=== PATIENT | female | born 1965 | race Caucasian/White ===

== ENCOUNTER 2017-06-28 06:45 | Day surgery (SDC) | payer OTHER ==
[~2017-06-28 06:45] MED LIST: Lactated Ringers 1,000 ML IV SCH; Sodium Chloride 0.9% 10 ML Syringe FLUSH PRN
[2017-06-28] MEDS ORDERED: Propofol 200 MG/20 ML SDV IV ONE (08:00)
[2017-06-28] MEDS ORDERED: Midazolam 1 MG/ML 2 ML SDV IV ONE (08:00)
--- NOTE | 2017-06-28 08:20 | PCM.OPNOTE ---
- General Post-Op/Procedure Note Date of Surgery/Procedure: 06/28/17 Operative Procedure(s): c scope Findings: nl exam Pre Op Diagnosis: screening Post-Op Diagnosis: normal study Anesthesia Technique: MAC Primary Surgeon: Wing Bryson Anesthesia Provider: Chandu Berrios Pathology: none Complications: None Condition: Good Free Text/Narrative:: see dictation
--- NOTE | 2017-06-28 15:24 | OR ---
DATE OF OPERATION: 06/28/2017 SURGEON: Wing Bryson MD PROCEDURE PERFORMED: Colonoscopy. PREOPERATIVE DIAGNOSIS: Need for screening C-scope. POSTOPERATIVE DIAGNOSIS: Normal study. INDICATIONS FOR PROCEDURE: This is a 51-year-old white female, who presents for her screening colonoscopy. She was offered and accepted same. DESCRIPTION OF OPERATION: After an excellent IV sedation was administered, digital rectal exam was performed. No marked abnormality was noted. Flexible colonoscope was inserted and advanced without difficulty to the cecum. The prep was excellent. The following findings were noted. Ascending colon unremarkable. Transverse colon unremarkable. Descending colon unremarkable. Sigmoid and rectum are unremarkable. Colon was deflated as the scope was removed. The patient tolerated the procedure well and was taken to recovery room in good condition. RECOMMENDATIONS: Repeat scope in 10 years. /[id number] /MODL
== END 2017-06-28 09:14 | disposition home or self-care (01) ==
LOC: FB.SDS 06:45 → MERGE 08:00 → FB.SDS 09:14
PROVIDERS: ATTEND Surgery
DX: Z12.11 Encounter for screening for malignant neoplasm of colon (principal); I83.90 Asymptomatic varicose veins of unspecified lower extremity; E66.01 Morbid (severe) obesity due to excess calories; Z83.71 Family history of colonic polyps; Z86.718 Personal history of other venous thrombosis and embolism; Z68.35 Body mass index [BMI] 35.0-35.9, adult
CPT/HCPCS: 45378; 81025; J7120; J2250; J2704